=== PATIENT | male | born 1965 ===

== ENCOUNTER 2019-05-29 05:09 | Day surgery (SDC) | payer OTHER ==
[~2019-05-29] VITALS: Ht 154.9 cm; Wt 77.1 kg
[2019-05-29] VITALS (11 sets, daily range): BP systolic 90–128; BP diastolic 58–81
[2019-05-29] MEDS ORDERED: NKM (05:48)
[2019-05-29] MEDS ORDERED: oxyCONTIN 20mg tab ORAL ONE (06:00)
[2019-05-29] MEDS ORDERED: celeBREX 200mg Cap **SURGERY PATIENTS ONLY ORAL ONE (06:00)
[2019-05-29] MEDS ORDERED: ceFAZolin 1gm IVPB IVPB ONE ×2 (06:00)
[2019-05-29] MEDS ORDERED: NS Irrig 4000ml IRRIG ONE (07:00)
[2019-05-29] MEDS ORDERED: LR 1000ml ONE (07:00)
--- NOTE | 2019-05-29 07:08 | Operative Note - PDOC ---
Operative Note Operative Note Pre-op Diagnosis: left knee medial meniscus tear Procedure: see op report Post-op Diagnosis: same as pre-op plus Operative Findings: consistent w/pre-op dx studies Anesthesia: MAC Specimen: none Complications: none Condition: stable Estimated Blood Loss: none Implant(s) used?: No Arvind Victoria MD May 29, 2019 07:08
--- NOTE | 2019-05-29 07:08 | Pre-Procedure Note/Attestation ---
Pre-Procedure Note/Attestation Complete Prior to Procedure Planned Procedure: left Procedure Narrative: knee arthroscopic medial menisectomy Indications for Procedure Pre-Operative Diagnosis: left knee medial meniscus tear Attestation I attest that I discussed the nature of the procedure; its benefits; risks and complications; and alternatives (and the risks and benefits of such alternatives ), prior to the procedure, with the patient (or the patient's legal hospital sales representative). I attest that, if there was a reasonable possibility of needing a blood transfusion, the patient (or the patient's legal hospital sales representative) was given the [facility] standardized written summary, pursuant to the [place] Blood Safety Act ([place] Health and Safety Code # 1645, as amended). I attest that I re-evaluated the patient just prior to the surgery and that there has been no change in the patient's H&P, except as documented below: Arvind Victoria MD May 29, 2019 07:08
[2019-05-29] MEDS ORDERED: Midazolam 2mg/2ml Inj ONE (07:09)
[2019-05-29] MEDS ORDERED: Propofol 200mg/20ml IV ONE (07:09)
[2019-05-29] MEDS ORDERED: fentaNYL 100 mcg/2 mL IV ONE (07:09)
[2019-05-29] MEDS ORDERED: Lidocaine 1% MPF 10mg/ml 5ml ONE (07:09)
[2019-05-29] MEDS ORDERED: LR 1000ml 1,000 ML IVLG SCH (07:17)
--- NOTE | 2019-05-29 07:17 | Anethesia Preoperative Eval ---
Anesthesia Pre-op PMH/ROS General Date of Evaluation: May 29, 2019 Anesthesiologist: Gama ASA Score: ASA 2 Mallampati Score Class I : Soft palate, uvula, fauces, pillars visible Class II: Soft palate, uvula, fauces visible Class III: Soft palate, base of uvula visible Class IV: Only hard plate visible Mallampati Classification: Class III Surgeon: Julien Diagnosis: Left kne internal derangement Surgical Procedure: Left knee arthrosscopy Anesthesia History: none Family History: no anesthesia problems Allergies: Coded Allergies: No Known Allergies (Unverified , 05/28/19) Medications: see eMAR Patient NPO?: Yes NPO Date: May 28, 2019 NPO Time: 22:00 Past Medical History Cardiovascular: Denies: HTN, CAD, [place], valve dz, arrhythmia, other Pulmonary: Denies: asthma, COPD, BELLA, other Gastrointestinal/Genitourinary: Reports: GERD; Denies: CRI, ESRD, other Neurologic/Psychiatric: Denies: dementia, CVA, depression/anxiety, TIA, other Endocrine: Denies: DM, hypothyroidism, steroids, other HEENT: Denies: cataract (L), cataract (R), glaucoma, [place] (L), [place] (R), other Hematology/Immune: Denies: anemia, DVT, bleeding disorder, other Musculoskeletal/Integumentary: Denies: OA, RA, DJD, DDD, edema, other PSxH Narrative: lap yanelis, left foot sx Anesthesia Pre-op Phys. Exam Physician Exam Last Vital Signs Date Time Temp Pulse Resp B/P (MAP) Pulse Ox O2 Delivery O2 Flow Rate FiO2 05/29/19 05:48 Room Air 05/29/19 05:42 97.7 67 18 128/81 97 Constitutional: NAD Cardiovascular: RRR Respiratory: CTA Airway Exam Mallampati Score: Class III MO: limited ROM: full Teeth: missing, intact Dentures: upper - prtial Anesthesia Pre-op A/P Labs see chart Studies Pre-op Studies: EKG - sr Risk Assessment & Plan Assessment: ASA II Plan: GA Status Change Before Surgery: No Pre-Antibiotics Drug: ancef 1g Given Within 1 Hr of Incision: Yes Shilpa Mckinnon MD May 29, 2019 07:17
[2019-05-29] MEDS ORDERED: Ketorolac 30mg Inj ONE ×2 (07:20→07:51)
[2019-05-29] MEDS ORDERED: Kenalog-40 1ml Vial ONE (07:20)
[2019-05-29] MEDS ORDERED: Duramorph PF 5mg/10ml amp ONE (07:20)
[2019-05-29] MEDS ORDERED: Lidocaine 1% 10mg/ml/Epi 0.005mg/ml 30ml vial INJ ONE (07:21)
[2019-05-29] MEDS ORDERED: Bupivacaine 0.25% Inj 30ml INJ ONE (07:21)
[2019-05-29] MEDS ORDERED: LORazepam Inj 2mg/ml 1ml IV PRN (07:30)
[2019-05-29] MEDS ORDERED: Hydromorphone 0.5mg/0.5ml inj IVP PRN (07:30)
[2019-05-29] MEDS ORDERED: Ketorolac 30mg Inj IV PRN (07:30)
[2019-05-29] MEDS ORDERED: DiphenhydrAMINE 50mg/ml Inj IVP PRN (07:30)
[2019-05-29] MEDS ORDERED: fentaNYL 100 mcg/2 mL IV PRN (07:30)
[2019-05-29] MEDS ORDERED: Midazolam 2mg/2ml Inj IVP PRN (07:30)
[2019-05-29] MEDS ORDERED: Metoclopramide 10mg/2ml Inj IVP PRN ×2 (07:30)
[2019-05-29] MEDS ORDERED: Duramorph PF 5mg/10ml amp EPIDUR ONE (07:55)
--- NOTE | 2019-05-29 08:04 | Immediate Post-Op Evaluation ---
Immediate Post-Op Evalulation Immediate Post-Op Evalulation Procedure: left knee arthrosocpy Date of Evaluation: May 29, 2019 Time of Evaluation: 08:06 IV Fluids: 500 Blood Products: 0 Estimated Blood Loss: min Urinary Output: 0 Blood Pressure Systolic: 101 Blood Pressure Diastolic: 63 Pulse Rate: 63 Respiratory Rate: 16 O2 Sat by Pulse Oximetry: 97 Temperature (Fahrenheit): 97 Pain Score (1-10): 0 Nausea: No Vomiting: No Complications 0 Patient Status: awake, reacts, patent, none Hydration Status: adequate Drug: Ancef 1g Given Within 1 Hr of Incision: Yes Shilpa Mckinnon MD May 29, 2019 08:04
--- NOTE | 2019-05-29 08:04 | 48 Hour Post Anesthesia Eval ---
Post Anesthesia Evaluation Procedure: left knee arthrosocpy Date of Evaluation: May 29, 2019 Airway: patent Nausea: No Vomiting: No Pain Intensity: 0 Hydration Status: adequate Cardiopulmonary Status: at baseline Mental Status/LOC: patient returned to baseline Post-Anesthesia Complications: 0 Follow-up care needed: ready to discharge Shilpa Mckinnon MD May 29, 2019 08:04
--- NOTE | 2019-05-29 10:30 | NUR ---
Good capillary filling to all left toes. Sensation good and skin warm to touch.
--- NOTE | 2019-05-29 12:45 | Operative Note - Dictated ---
DATE OF OPERATION: 05/29/2019 PREOPERATIVE DIAGNOSIS: Left knee internal derangement secondary medial meniscus tear. POSTOPERATIVE DIAGNOSES: 1. Left knee medial meniscus tear. 2. Left knee grade 3 chondral damage, medial femoral condyle. 3. Hypertrophic synovial tissue, medial, lateral, and patellofemoral compartment. PROCEDURES: 1. Left knee arthroscopic partial medial meniscectomy. 2. Chondroplasty, medial or femoral condyle. 3. Synovectomy of medial, lateral, and patellofemoral compartment. SURGEON: Arvind Victoria M.D. ANESTHESIA: MAC. INDICATION FOR PROCEDURE: This is a pleasant gentleman, who had a significant injury to his left knee. He subsequently had continued pain despite conservative treatment, elected to undergo left knee arthroscopy and medial meniscectomy. Risks, limitations, expectations, and complications of the procedure were discussed in detail. All questions addressed. DESCRIPTION OF PROCEDURE: After informed consent was obtained, the patient was brought to the operating room and placed under general anesthesia. Left knee was prepped and draped in a sterile manner. Time-out was performed. Ancef was administered. Inferolateral stab incision was then made. Trocar was introduced into the knee joint. Systematic tour of the knee was performed. There was hypertrophic synovial tissue in the patellofemoral compartment. Medial gutter was entered. No loose bodies were visualized. Medial compartment was entered. There was a tear of the posterior horn medial meniscus along with some chondral damage in the femoral condyle. Medial working portal was established. Partial meniscectomy was performed using a shaver. There was some chondroplasty of the medial femoral condyle. Therefore, gentle chondroplasty was performed. There was grade 3 chondral damage medial femoral condyle that measured about 1 cm x 1 cm. The excision of the fat pad and synovectomy was completed in the anterior compartment intercondylar notch. The lateral compartment better visualized. The internal structures, ACL was probed, noted to be intact. Lateral compartment was entered free from the meniscal chondral damage. Camera was repositioned in the patellofemoral compartment. Excision of fat pad and synovectomy was completed. Camera was then placed in the medial working portal and the synovectomy and excision fat pad in the lateral compartment extending into the lateral gutter was completed. Once that was done, the instruments were removed. Portal sites were closed with 3-0 Monocryl sutures. ESTIMATED BLOOD LOSS: None. COMPLICATIONS: None. SPECIMENS: None. Arvind Victoria M.D. DR: MERCY JOB#: [id number] CC: ANNA
[2019-05-29] MEDS ORDERED: HYDROmorphone 1mg/ml Carpuject SUBQ PRN (15:31)
[2019-05-29] MEDS ORDERED: Tylenol #3 tab (300mg/30mg) ORAL PRN (15:31)
[2019-05-29] MEDS ORDERED: HYDROcodone/Acetamin 5/325 tab ORAL PRN (15:31)
[2019-05-29] MEDS ORDERED: D5 1/2NS 1,000 ML IV SCH (15:31)
== END 2019-05-29 10:30 | disposition home or self-care (01) ==
LOC: SDS 05:09
DX: S83.242A Other tear of medial meniscus, current injury, left knee, initial encounter (principal); M67.262 Synovial hypertrophy, not elsewhere classified, left lower leg; X58.XXXA Exposure to other specified factors, initial encounter; Y92.9 Unspecified place or not applicable; Z90.49 Acquired absence of other specified parts of digestive tract; K21.9 Gastro-esophageal reflux disease without esophagitis
CPT/HCPCS: 29876; 29881; J0690; J1885; J2250; J2704; J3010; J3301; J3490; 94003; 94150